=== PATIENT | female | born 1955 | race Asian ===

== ENCOUNTER 2019-10-13 07:44 | Day surgery (SDC) | payer OTHER ==
[~2019-10-13] VITALS: Ht 30.5 cm; Wt 0.5 kg
== END 2019-10-13 09:15 | disposition home or self-care (01) ==
LOC: OR 07:44
PROC: 3E0R33Z Introduction of Anti-inflammatory into Spinal Canal, Percutaneous Approach (ICD-10-PCS; principal; 2019-10-13)
PROC: B01BYZZ Fluoroscopy of Spinal Cord using Other Contrast (ICD-10-PCS; 2019-10-13)
DX: M51.16 Intervertebral disc disorders with radiculopathy, lumbar region (principal)
CPT/HCPCS: J1020

== ENCOUNTER 2019-11-10 07:56 | Day surgery (SDC) | payer OTHER | END 2019-11-10 08:55 | disposition home or self-care (01) | LOC: OR 07:56 | PROC: 3E0R33Z Introduction of Anti-inflammatory into Spinal Canal, Percutaneous Approach (ICD-10-PCS; principal; 2019-11-10) | PROC: B01BYZZ Fluoroscopy of Spinal Cord using Other Contrast (ICD-10-PCS; 2019-11-10) | DX: M51.16 Intervertebral disc disorders with radiculopathy, lumbar region (principal) | CPT/HCPCS: J1020 ==

== ENCOUNTER 2020-05-24 08:29 | Day surgery (SDC) | payer OTHER ==
[~2020-05-24] VITALS: Ht 30.5 cm; Wt 0.5 kg
== END 2020-05-24 10:00 | disposition home or self-care (01) ==
LOC: OR 08:29
PROC: 3E0R33Z Introduction of Anti-inflammatory into Spinal Canal, Percutaneous Approach (ICD-10-PCS; principal; 2020-05-24)
PROC: 3E0R3BZ Introduction of Anesthetic Agent into Spinal Canal, Percutaneous Approach (ICD-10-PCS; 2020-05-24)
DX: M53.3 Sacrococcygeal disorders, not elsewhere classified (principal); M46.1 Sacroiliitis, not elsewhere classified
CPT/HCPCS: J1020; J3490